=== PATIENT | female | born 1990 | race Caucasian/White ===

== ENCOUNTER 2023-03-04 08:56 | Day surgery (SDC) | payer BC ==
[~2023-03-04] VITALS: Ht 160 cm; Wt 84.4 kg
[~2023-03-04 08:56] MED LIST: ceFAZolin SODIUM 2 GM in D5W 100 ML IV ONE
[2023-03-04] MEDS ORDERED: fentaNYL CITRATE/PF 100 MCG/2 ML AMP ONE (11:10)
[2023-03-04] MEDS ORDERED: MIDAZOLAM HCL 2 MG/2 ML VIAL (VERSED) ONE (11:10)
[2023-03-04] MEDS ORDERED: ROCURONIUM BROMIDE 10 MG/ML (ZEMURON) ONE (11:17)
[2023-03-04] MEDS ORDERED: ONDANSETRON HCL 4 MG/2 ML VIAL ONE (11:17)
[2023-03-04] MEDS ORDERED: SUGAMMADEX SODIUM 200 MG/2 ML VIAL IV ONE (11:17)
[2023-03-04] MEDS ORDERED: DEXAMETHASONE SOD PHOSPHATE 4 MG/ML VIAL ONE (11:17)
[2023-03-04] MEDS ORDERED: NS IRRIG SOLN 1000 ML IR ONE (11:17)
[2023-03-04] MEDS ORDERED: KETOROLAC TROMETHAMINE 30 MG VIAL ONE (11:17)
[2023-03-04] MEDS ORDERED: LR 1,000 ML IV.SOLN IV ONE (11:17)
[2023-03-04] MEDS ORDERED: BUPIVACAINE /PF 0.25% 30 ML VIAL INJ ONE (11:17)
[2023-03-04] MEDS ORDERED: PROPOFOL 200MG/ 20ML VIAL (DIPRIVAN) IV ONE (11:17)
[2023-03-04] MEDS ORDERED: SEVOFLURANE 15 MIN GAS INH ONE (11:17)
[2023-03-04] MEDS ORDERED: HYDROcodone/ACETAMIN 5-325 MG TAB (NORCO/ VICODIN) PO PRN (12:15)
[2023-03-04] MEDS ORDERED: ONDANSETRON HCL 4 MG/2 ML VIAL IVP PRN ×2 (12:15)
[2023-03-04] MEDS ORDERED: MEPERIDINE HCL/PF 25 MG/ML DISP.SYRIN IVP PRN (12:15)
[2023-03-04] MEDS ORDERED: OXYCODONE/ACETAMINOPHEN 5-325 TABLET PO PRN ×2 (12:15)
[2023-03-04] MEDS ORDERED: METOCLOPRAMIDE HCL 10 MG/2 ML VIAL IVP PRN (12:15)
[2023-03-04] MEDS ORDERED: HYDROmorphone 1 MG/ML INJ. CARTRIDGE IVP PRN (12:15)
[2023-03-04 12:34] VITALS: O2SAT 99
[2023-03-04 15:00] VITALS: BP_SYST 110; PULSE 65; RESP 20
== END 2023-03-04 14:58 | disposition home or self-care (01) ==
LOC: SDS 08:56 → SMU 08:57 → SDS 14:58
PROVIDERS: ATTEND Specialist
DX: R10.2 Pelvic and perineal pain (principal); N80.129 Deep endometriosis of ovary, unspecified ovary; R19.00 Intra-abdominal and pelvic swelling, mass and lump, unspecified site; Z90.49 Acquired absence of other specified parts of digestive tract
CPT/HCPCS: 87081; 64488; 49204; 88305; J3490 ×2; J1100; J1885; J3465; J2405; J2704; J3010; J7060; J7120; 88304